=== PATIENT | male | born 1955 | race Caucasian/White ===

== ENCOUNTER → 2020-05-25 | Outpatient (CLI) | payer MEDICARE | LOC: MRI 13:37 | PROVIDERS: ATTEND Psychiatry & Neurology Neurology | DX: R29.818 Other symptoms and signs involving the nervous system (principal) | CPT/HCPCS: 70547; 70551 ==

== ENCOUNTER → 2020-06-10 | Outpatient (CLI) | payer MEDICARE ==
[~2020-06-10] MED LIST: IOPAMIDOL 370 MG/ML 200 ML INFUS..BTL INJ ONE; SODIUM CHLORIDE 0.9% 100 ML ONE
[2020-06-10 14:34] LABS: BLOOD UREA NITROGEN 10 mg/dL (7-26); BUN/CREATININE RATIO 12 (6-25); CREATININE, SERUM 0.82 mg/dL (0.72-1.25); EST GLOMERULAR FILTRATION RATE > 60 ML/MIN (60-)
--- NOTE | 2020-06-11 09:05 | Diagnostic Imaging Report ---
Examination: Cervical and Intracranial CT Angiogram with Contrast History: ^[id number] ^1500 ^INTERNAL CAROTID ARTERY DISSECTION. Comparison studies: Cervical MRA performed May 25, 2020 Technique: Axial images were obtained from the thoracic inlet. Coronal and sagittal images reconstructed from the axial data. Intravenous contrast: 100 mL of Isovue 370. Degree of stenosis at the carotid bulbs, if present, will be calculated using NASCET criteria where the smallest diameter at the location of stenosis is compared to the diameter of the more distal non-diseased vessel lumen. Computer generated maximum intensity projection and 3D images of the cervical and intracranial anterior and posterior circulations were performed on a separate workstation. Dose modulation, iterative reconstruction, and/or weight based adjustment of the mA/kV was utilized to reduce the radiation dose to as low as reasonably achievable. Findings: CTA neck: Aortic arch and major vessels: Patent. Common carotid arteries: Patent Cervical carotid bifurcations: Right: Patent. Left :Patent. Internal carotid arteries: Right: Patent. 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 No abnormalities in the right. Vertebral arteries: No abnormalities. CTA head: Internal carotid arteries: Patent. Anterior cerebral arteries: Patent left A1 and bilateral A2 segment. Absent right A1 segment Middle cerebral arteries: Patent bilateral M1 and M2 segments. Posterior cerebral arteries: Patent Vertebro-basilar system: Patent. Anatomical variants: Anterior communicating artery :Present Posterior communicating arteries: Not visualized. Vertebral arteries: Left dominant. IMPRESSION: 1. 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 2. No additional cervical or intracranial arterial stenosis or occlusion or vascular malformation Signed by: Dr. Alyce Vazquez M.D. on 06/11/2020 9:01 AM
== END ==
LOC: CT 13:24
PROVIDERS: ATTEND Psychiatry & Neurology Neurology
DX: I77.71 Dissection of carotid artery (principal)
CPT/HCPCS: 36415; 70496; 70498; 82565; 84520; J7050; Q9967

== ENCOUNTER → 2020-06-28 | Day surgery (SDC) | payer MEDICARE ==
[2020-06-23 11:22] LABS: BASOPHILS % 0.5 % (0.0-1.0); EOSINOPHILS # (AUTO) 0.2 (0.0-0.4); EOSINOPHILS % 2.2 % (0.0-6.0); HEMATOCRIT 42.4 % (38.2-49.6); HEMOGLOBIN 13.7 g/dL (14.0-18.0); LYMPHOCYTES # (AUTO) 1.6 (1.0-3.2); LYMPHOCYTES % 20.3 % (18.0-39.1); MEAN CORPUSCULAR HEMOGLOBIN 28.3 pg (28-32); MEAN CORPUSCULAR HGB CONC 32.3 g/dL (31-35); MEAN CORPUSCULAR VOLUME 87.6 fL (81-99); MONOCYTES # (AUTO) 0.7 (0.2-0.8); MONOCYTES % 8.7 % (4.4-11.3); NEUTROPHILS # (AUTO) 5.5 (2.1-6.9); NEUTROPHILS % 67.9 % (38.7-80.0); PLATELET COUNT 251 x10e3/uL (140-360); RED BLOOD COUNT 4.84 x10e6/uL (4.3-5.7); RED CELL DISTRIBUTION WIDTH 13.4 % (11.7-14.4)
[2020-06-23 11:34] LABS: INR 0.97; PROTHROMBIN TIME 13.4 seconds (11.9-14.5)
[2020-06-23 11:46] LABS: ALANINE AMINOTRANSFERASE 30 IU/L (0-55); ALBUMIN 4.3 g/dL (3.5-5.0); ALBUMIN/GLOBULIN RATIO 1.2 (0.8-2.0); ALKALINE PHOSPHATASE 67 IU/L (40-150); ANION GAP 15.4 mmol/L (8-16); BLOOD UREA NITROGEN 14 mg/dL (7-26); BUN/CREATININE RATIO 15 (6-25); CALCIUM 9.4 mg/dL (8.4-10.2); CARBON DIOXIDE 25 mmol/L (22-29); CHLORIDE 102 mmol/L (98-107); CREATININE, SERUM 0.94 mg/dL (0.72-1.25); EST GLOMERULAR FILTRATION RATE > 60 ML/MIN (60-); GLUCOSE 101 mg/dL (74-118); POTASSIUM 4.4 mmol/L (3.5-5.1); SODIUM 138 mmol/L (136-145)
[~2020-06-28] VITALS: Ht 170.2 cm; Wt 70.3 kg
[2020-06-28] VITALS (8 sets, daily range): BP systolic 133–161; BP diastolic 60–101
[~2020-06-28] MED LIST changes: +ASPIRIN81 MG PO; +FENTANYL CITRATE/PF 100MCG/2 ML INJ ONE; +FLOMAX0.4 MG PO; +HEPARIN SOD/SOD CHLORIDE 2,000 ML ONE; +LIDOCAINE HCL 2% LOCAL 20 ML VIAL ONE; +MIDAZOLAM HCL 2 MG/2 ML VIAL ONE; -SODIUM CHLORIDE 0.9% 100 ML ONE; +SODIUM CHLORIDE 0.9% 1000ML 1,000 ML ONE
== END | disposition home or self-care (01) ==
LOC: CATH LAB 07:50
PROVIDERS: ATTEND Internal Medicine Cardiovascular Disease
DX: I65.22 Occlusion and stenosis of left carotid artery (principal); I10 Essential (primary) hypertension; Z01.812 Encounter for preprocedural laboratory examination; Z20.828 Contact with and (suspected) exposure to other viral communicable diseases; C61 Malignant neoplasm of prostate
CPT/HCPCS: 36224; 36415; 80053; 85025; 85610; C1760; C1769; J2001; J2250; J3010; J7030; Q9967; U0002; 36200; 99152; 99153